=== PATIENT | male | born 1950 | race Caucasian/White ===

== ENCOUNTER 2016-07-20 12:41 | Inpatient (IN) | payer OTHER, MEDICARE ==
[2016-07-20] MEDS ORDERED: NS 500 ML IV ONE (12:55)
--- NOTE | 2016-07-20 12:58 | UCPHY ---
H & P Time Seen by Provider: 07/20/16 12:55 Patient Type: New HPI/ROS: CHIEF COMPLAINT: lightheaded HISTORY OF PRESENT ILLNESS: Patient is a 66-year-old male who presents emergency department after having multiple episodes of lightheadedness. He states the episodes primarily occur when he is changing positions, usually lying down or sitting to standing. Patient describes a bright light and then he feels lightheaded. He feels as though he might faint but he has not. He has had no fall or trauma. He denies headache, dizziness or visual change. He has no focal weakness or numbness. He denies chest pain or shortness of breath. No abdominal pain nausea or vomiting. Patient's daughter states he does not drink enough fluid. No leg pain or swelling. REVIEW OF SYSTEMS: My complete review of systems is negative except as mentioned in the HPI. Past Medical/Surgical History: Includes Hypertension, high cholesterol, recently diagnosis psoriatic rash Physical Exam: Vitals noted GENERAL: Well-appearing, in no acute distress, alert. HEENT: Eyes normal to inspection, normal pharynx, no signs of dehydration. NECK: No thyromegaly, no lymphadenopathy, supple. RESPIRATORY: Clear to auscultation bilaterally, no rales, rhonchi or wheezing. CVS: Regular rate and rhythm, no rubs, murmurs, or gallops. ABDOMEN: Soft, nontender, nondistended, no organomegaly. BACK: Normal to inspection, no CVA tenderness. SKIN: Normal color, no rash, warm, dry. No pallor. EXTREMITIES: No pedal edema, no calf tenderness, no Homans sign or cords, no joint swelling. NEURO/PSYCH: Higher functions: Alert and Oriented x3. Normal speech and cognition. Normal mood and affect. Cranial nerves: Normal as tested. Cerebellar: Normal as tested. Good finger to nose, good [id number], normal gait. Peripheral exam: Normal motor exam. Normal sensation. Normal reflexes. Constitutional: Initial Vital Signs Temperature (C) 36.7 C 07/20/16 13:00 Heart Rate 86 07/20/16 13:00 Respiratory Rate 16 07/20/16 13:00 Blood Pressure 136/121 H 07/20/16 13:00 O2 Sat (%) 96 07/20/16 13:00 O2 Delivery Mode Room Air Allergies/Adverse Reactions: No Known Allergies Allergy (Verified 07/20/16 13:09) Home Medications: Medication Instructions Recorded Aspirin 81mg (*) 07/20/16 Diovan Hct 160-25 mg Tablet 320 07/20/16 Norvasc 07/20/16 Simvastatin 07/20/16 Medical Decision Making - Diagnostics EKG Interpretation: EKG shows normal sinus rhythm, normal rate, normal axis, normal intervals. There are no ST or T-wave abnormalities. EKG is normal as interpreted by me. ED Course/Re-evaluation: I discussed possible etiologies with the patient. I answered all his questions. IV was placed. The patient was given normal saline 500 mL IV for hydration. Laboratory studies, EKG, chest x-ray and head CT were ordered. Head CT: Please refer the dictated report by Dr. Matthew Vásquez. No acute disease noted. Patient [place] [address]. Hematocrit is normal. Platelets are unremarkable. The patient has low sodium 129. Patient has had mild hyponatremia in the past with his previous sodium being 133. UA was added. I discussed the results with the patient and answered all his questions. Patient was recheck. He had no focal neurologic deficits. I discussed the case with Dr. Mijares personally. Reviewed the patient's laboratory studies and x-ray. We agreed on the plan for transfer to [facility] and admission. I discussed this with the patient and answered all his questions. I discussed the case with Dr. Dominique who accepts transfer to the emergency department at the [facility]. Discussed the case with Dr. Loc Noguera from the hospitalist service who accepts the patient. Differential Diagnosis: My differential includes but is not limited to near syncope, syncope, ACS, acute RI, dysrhythmia, PE, electrolyte abnormality, sugar abnormality, dehydration, ischemic CVA, hemorrhagic CVA, dissection, aneurysm - Data Points Laboratory Results: Laboratory Results 07/20/16 13:18 07/20/16 13:18 07/20/16 07/20/16 07/20/16 14:10 13:18 13:18 WBC 21.30 10^3/uL H 10^3/uL (3.80-9.50) RBC 4.28 10^6/uL L 10^6/uL (4.40-6.38) Hgb 15.0 g/dL g/dL (13.7-17.5) Hct 40.6 % % (40.0-51.0) MCV 94.9 fL fL (81.5-99.8) MCH 35.0 pg H pg (27.9-34.1) MCHC 36.9 g/dL H g/dL (32.4-36.7) RDW 12.3 % % (11.5-15.2) Plt Count 205 10^3/uL 10^3/uL (150-400) MPV 8.8 fL fL (8.7-11.7) Neut % (Auto) 86.7 % H % (39.3-74.2) Lymph % (Auto) 6.1 % L % (15.0-45.0) [place] % (Auto) 6.3 % % (4.5-13.0) Eos % (Auto) 0.2 % L % (0.6-7.6) Baso % (Auto) 0.1 % L % (0.3-1.7) Nucleat RBC Rel Count 0.0 % % (0.0-0.2) Absolute Neuts (auto) 18.47 10^3/uL H 10^3/uL (1.70-6.50) Absolute Lymphs (auto) 1.29 10^3/uL 10^3/uL (1.00-3.00) Absolute Monos (auto) 1.34 10^3/uL H 10^3/uL (0.30-0.80) Absolute Eos (auto) 0.04 10^3/uL 10^3/uL (0.03-0.40) Absolute Basos (auto) 0.03 10^3/uL 10^3/uL (0.02-0.10) Absolute Nucleated RBC 0.00 10^3/uL 10^3/uL (0-0.01) Immature Gran % 0.6 % % (0.0-1.1) Immature Gran # 0.13 10^3/uL H 10^3/uL (0.00-0.10) Sodium 129 mEq/L L mEq/L (134-144) Potassium 3.6 mEq/L mEq/L (3.5-5.2) Chloride 93 mEq/L L mEq/L (97-110) Carbon Dioxide 24 mEq/l mEq/l (22-31) Anion Gap 12 mEq/L mEq/L (8-16) BUN 8 mg/dL mg/dL (7-23) Creatinine 0.9 mg/dL mg/dL (0.7-1.3) Estimated GFR > 60 Glucose 95 mg/dL mg/dL (70-100) Calcium 9.5 mg/dL mg/dL (8.5-10.4) Troponin I < 0.012 ng/mL ng/mL (0-0.034) Urine Color YELLOW Urine Appearance CLEAR Urine pH 7.0 (5.0-7.5) Ur Specific [place] <= 1.005 (1.002-1.030) Urine Protein NEGATIVE (NEGATIVE) Urine Ketones TRACE H (NEGATIVE) Urine Blood NEGATIVE (NEGATIVE) Urine Nitrate NEGATIVE (NEGATIVE) Urine Bilirubin NEGATIVE (NEGATIVE) Urine Urobilinogen 0.2 EU EU (0.2-1.0) Ur Leukocyte Esterase NEGATIVE (NEGATIVE) Ur Culture Indicated? NOT INDICATED (NI) Urine Glucose NEGATIVE (NEGATIVE) Medications Given: Discontinued Medications Sodium Chloride (Ns) 500 mls @ 0 mls/hr IV ONCE ONE PRN Reason: As Directed Stop: 07/20/16 12:56 Last Admin: 07/20/16 14:05 Dose: 500 mls Departure - Departure Disposition: [facility] Inpatient Acute Clinical Impression: Near syncope, Lightheaded, Hyponatremia Leukocytosis Qualifiers: Leukocytosis type: other Qualified Code(s): D72.828 - Other elevated white blood cell count Condition: Good Referrals: Taran Mijares, DO [Primary Care Provider] - As per Instructions - PQRS PQRS Measurement: My PQRS negative my PQRS negative my PQRS negative my PQRS negative 134: Depression screening and followup, PRIME MD-PHQ2 (12 years and older) Over the last 2 weeks, how often have you been bothered by any of the following problems? 1. Feeling down, depressed, or hopeless? 2. Little interest or pleasure in doing things? Patient answered no to both 1 and 2 130: Documentation of medications. Reviewed all patient medications, doses, route and frequency. 226: Do you smoke? Yes. The patient was advised to stop smoking..
--- NOTE | 2016-07-20 13:11 | CPEKG ---
Heart Rate: 81 RR Interval: 741 P-R Interval: 200 QRSD Interval: 86 QT Interval: 388 QTC Interval: 451 P [place]: 62 QRS [place]: 42 T Wave [place]: 45 EKG Severity - NORMAL ECG - EKG Impression: SINUS RHYTHM Electronically Signed By: Peter Early 21-Jul-2016 13:26:06
[2016-07-20 13:25] LABS: % IMMATURE GRANULYOCYTES 0.6 % (0.0-1.1); ABSOLUTE IMMATURE GRANULOCYTES 0.13 10^3/uL (0.00-0.10); ADD DIFF? NO; ADD MORPH? NO; ADD SCAN? NO; ATYPICAL LYMPHOCYTE FLAG 0 (0-99); FRAGMENT RBC FLAG 0 (0-99); HEMATOCRIT 40.6 % (40.0-51.0); LEFT SHIFT FLG 0 (0-99); LIPEMIA HEMOLYSIS FLAG 90 (0-99); MEAN CELL HEMOGLOBIN CONCENTR. 36.9 g/dL (32.4-36.7); MEAN CELL VOLUME 94.9 fL (81.5-99.8); MEAN PLATELET VOLUME 8.8 fL (8.7-11.7); PLATELET CLUMPS FLAG 10 (0-99); PLATELET COUNT 205 10^3/uL (150-400); RED BLOOD CELL COUNT 4.28 10^6/uL (4.40-6.38); RED CELL DISTRIBUTION WIDTH 12.3 % (11.5-15.2)
[2016-07-20 13:41] LABS: ANION GAP 12 mEq/L (8-16); CALCIUM 9.5 mg/dL (8.5-10.4); CARBON DIOXIDE 24 mEq/l (22-31); CHLORIDE 93 mEq/L (97-110); CREATININE 0.9 mg/dL (0.7-1.3); GLOMERULAR FILTRATION RATE > 60; GLUCOSE 95 mg/dL (70-100); POTASSIUM 3.6 mEq/L (3.5-5.2); SODIUM 129 mEq/L (134-144)
[2016-07-20 13:54] LABS: TROPONIN I < 0.012 ng/mL (0-0.034)
[2016-07-20 14:25] LABS: COLOR YELLOW; LEUKOCYTE ESTERASE,URINE NEGATIVE (NEGATIVE); NITRITE,URINE NEGATIVE (NEGATIVE)
[2016-07-20] MEDS ORDERED: ACETAMINOPHEN 325 MG TAB PO PRN (17:52)
[2016-07-20] MEDS ORDERED: ONDANSETRON DISINTEGRATING 4 MG TAB PO PRN (17:52)
[2016-07-20] MEDS ORDERED: ONDANSETRON 4 MG/2 ML VIAL IVP PRN (17:52)
[2016-07-20] MEDS ORDERED: NS 1,000 ML IV SCH (18:00)
--- NOTE | 2016-07-20 22:44 | GHP ---
[f rep st] HISTORY AND PHYSICAL DATE OF ADMISSION: 07/20/2016 HISTORY OF PRESENT ILLNESS: The patient is a 66-year-old gentleman with a history of hypertension a nd hyperlipidemia who presented for a presyncopal type episode. He has had a number of these episod es where he feels weak and he sees bright lights. He has no chest pain, no shortness of breath, no palpitations. He does not have heart failure symptoms such as PND, orthopnea, or lower extremity ed ariana. He does not have a cardiac history. He has not lost consciousness. He was down on his hands knees working with his daughter, and he had a significant episode, so he so ught care. He denies recent shortness of breath or cough. He does smoke cigarettes and has done so for approxi mately 50 years. He drinks about 6-8 beers throughout the day. He does not have a history of alcoh ol withdrawal. It is not clear that he has stopped for an extended period of time. His children note that he drinks minimal water, and he only eats dinner. He does not drink much dur ing the day. He does describe orthostatic type symptoms. He has had some diarrhea over the last couple of days. No nausea. REVIEW OF SYSTEMS: Complete 10-point review of systems conducted and negative except as noted in th e HPI. PAST MEDICAL HISTORY: Hypertension and hyperlipidemia. Heavy alcohol use. ALLERGIES: No known drug allergies. HOME MEDICATIONS: Amlodipine, aspirin, hydrochlorothiazide 12.5, simvastatin and valsartan. SOCIAL HISTORY: He worked at [employer] and before that it sounds like for the [employer]. He amandae kaylaly lives in [place]. He smokes cigarettes and alcohol as in the HPI. FAMILY HISTORY: Children at the bedside and helpful. PHYSICAL EXAMINATION: VITAL SIGNS: Blood pressure 128/88, pulse 108, breathing 18 times a minute, 92% on room air. GENERAL: No acute distress. HEENT: Sclerae anicteric. Oropharynx clear. Mucou s membranes are moist. NECK: Supple without lymphadenopathy or JVD. LUNGS: Show rhonchorous pebbles th sounds and fine crackles bilaterally. HEART: S1, S2 without murmurs. ABDOMEN: Soft, nontender , and nondistended. LOWER EXTREMITIES: Without edema. SKIN: He has an erythematous rash on his r ight pope that he feels like is consistent with infection. There is some skin flaking. He is takin g a steroid cream for this that has led to significant improvement. NEUROLOGIC: Nonfocal. LABORATORY DATA: White count 21, with a left shift. Hematocrit 40. Platelets are 205,000. Sodium 129, potassium 3.6, chloride 93, bicarb 24, BUN 8, creatinine 0.9, glucose 95. Troponin less than 0.012. Chest x-ray, interpreted by me, shows an interstitial lung pattern bilaterally. There is no focal infiltrate. There is no cardiomegaly. Urinalysis is negative. EKG interpreted by me shows sinus at 81 with normal axis and intervals. There are no ST or T-wave changes. Noncontrast head CT shows right maxillary and ethmoid sinusitis, cerebrovascular atherosclerosis, and mild microvascula r ischemic gliosis. I discussed the case Dr. Martina Starkey of Urgent Care. ASSESSMENT/PLAN: This 66-year-old gentleman presents with multiple complaints. 1. Presyncope type symptoms. I suspect this is orthostasis. We will check orthostatic vital signs while here. We will place him on telemetry and cycle his troponin's. I do not think he needs an e chocardiogram at this point. 2. Leukocytosis. In the context of abnormal chest x-ray, we will treat for community-acquired pneu monia. He may have an atypical pneumonia. I will also check influenza, given his leukocytosis. We will also send a stool for Clostridium difficile. He does not appear to be at risk for it. 3. Abnormal chest x-ray in a smoker. We will treat for community-acquired pneumonia and do a nonco ntrast chest CT to evaluate for ILD. No evidence of masses. 4. Hyponatremia. This is chronic. He has had previous low sodium. I think this is poor oral inta ke in the setting of thiazide diuretics. Given his low dose of thiazide, I think it should be perma nently discontinued. 5. Prophylaxis. He is moderate risk. I suspect he will just be in the hospital overnight. DISPOSITION: Observation status. /[id number]/MODL
[2016-07-21 05:24] LABS: % IMMATURE GRANULYOCYTES 0.2 % (0.0-1.1); ABSOLUTE IMMATURE GRANULOCYTES 0.01 10^3/uL (0.00-0.10); ADD DIFF? NO; ADD MORPH? NO; ADD SCAN? NO; ATYPICAL LYMPHOCYTE FLAG 10 (0-99); FRAGMENT RBC FLAG 0 (0-99); HEMATOCRIT 38.5 % (40.0-51.0); HEMOGLOBIN 13.8 g/dL (13.7-17.5); LEFT SHIFT FLG 0 (0-99); LIPEMIA HEMOLYSIS FLAG 90 (0-99); MEAN CELL HEMOGLOBIN 35.3 pg (27.9-34.1); MEAN CELL HEMOGLOBIN CONCENTR. 35.8 g/dL (32.4-36.7); MEAN CELL VOLUME 98.5 fL (81.5-99.8); MEAN PLATELET VOLUME 9.2 fL (8.7-11.7); PLATELET CLUMPS FLAG 10 (0-99); PLATELET COUNT 211 10^3/uL (150-400); RED BLOOD CELL COUNT 3.91 10^6/uL (4.40-6.38); RED CELL DISTRIBUTION WIDTH 12.4 % (11.5-15.2)
[2016-07-21 05:54] LABS: ANION GAP 8 mEq/L (8-16); CALCIUM 8.6 mg/dL (8.5-10.4); CARBON DIOXIDE 22 mEq/l (22-31); CHLORIDE 107 mEq/L (97-110); CREATININE 0.8 mg/dL (0.7-1.3); GLOMERULAR FILTRATION RATE > 60; GLUCOSE 84 mg/dL (70-100); SODIUM 137 mEq/L (134-144)
[2016-07-21] MEDS: VALSARTAN 160 MG TAB PO SCH (08:31)
[2016-07-21] MEDS: ATORVASTATIN CALCIUM 10 MG TAB PO SCH (08:31)
[2016-07-21] MEDS: ASPIRIN EC 81 MG TAB PO SCH (08:31)
--- NOTE | 2016-07-21 18:02 | HOSPPROG ---
Hospitalist Progress Note Assessment/Plan: DIAGNOSES: # left-sided facial and head and upper extremity heavy sensation, new symptom today suspicious for possible stroke ; as the symptoms have been present since sometime during last night and I am just finding out about them from him late this afternoon there is no reason to be doing stroke alert at this time # orthostatic dizziness and dehydration, resolved after IV fluids # Hyponatremia due to poor intake and diuretics, resolved after IV fluids # chronic hypertension remains well controlled here without his diuretic and I would agree that given the above he should probably stop diuretics permanently as his symptoms are recurrent episode PLANS: -MRI of brain to evaluate his left-sided neurologic symptoms - can stop IV fluids now -Continue off diuretic and follow blood pressures continuing his other medicines - Liriano views of the orbits are ordered as 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 However he complains to me that feels that he has an imbalance pushing him toward the left side, and that he has a heavy sensation on the left side of his head face and left upper extremity. There is no tingling or numbness there. He has no other focal neurologic symptoms. There is no headache and no cardiac symptoms. He has been able to get up and walk and he has been eating well. 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: sinus rhythm Exam: alert oriented skin warm dry color ok resps not labored lungs clear BSs heart regular abd soft nondistended nontender, bowel sounds present limbs warm, no edema iv site ok Objective: Vital Signs Temp Pulse Resp BP Pulse Ox 36.9 C 80 20 113/67 91 L 07/21/16 15:43 07/21/16 15:43 07/21/16 15:43 07/21/16 15:43 07/21/16 15:43 Laboratory Results 07/21/16 04:39 07/21/16 04:39 07/20/16 07/21/16 07/22/16 06:59 06:59 06:59 Intake Total 900 1300 Output Total 820 Balance 80 1300 ICD10 Worksheet Patient Problems: Problems Problem Status Onset Hyponatremia Acute Leukocytosis Acute Lightheaded Acute Near syncope Acute
--- NOTE | 2016-07-21 18:05 | HOSPPROG ---
Hospitalist Progress Note Assessment/Plan: DIAGNOSES: # left-sided facial and head and upper extremity heavy sensation, -new symptom today suspicious for possible stroke ; as the symptoms have been present since sometime during last night and I am just finding out about them from him late this afternoon there is no reason to be doing stroke alert at this time # orthostatic dizziness and dehydration, resolved after IV fluids # Hyponatremia due to poor intake and diuretics, resolved after IV fluids # chronic hypertension - remains well controlled here without his diuretic and I would agree that given the above he should probably stop diuretics permanently as his symptoms are recurrent episode # 1 cm noncalcified left lung nodule, new finding on CT - this lesion will need further evaluation, is location may indicate PET scanning as a place to start but will review have pulmonology review - I have discussed this lesion and the need for evaluation with the patient PLANS: -MRI of brain to evaluate his left-sided neurologic symptoms - can stop IV fluids now -Continue off diuretic and follow blood pressures continuing his other medicines - Liriano views of the orbits are ordered as 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 However he complains to me that feels that he has an imbalance pushing him toward the left side, and that he has a heavy sensation on the left side of his head face and left upper extremity. There is no tingling or numbness there. He has no other focal neurologic symptoms. There is no headache and no cardiac symptoms. He has been able to get up and walk and he has been eating well. 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 Exam: alert oriented skin warm dry color ok resps not labored lungs clear BSs heart regular abd soft nondistended nontender, bowel sounds present limbs warm, no edema iv site ok CT scan of chest, my review of images: There is a 1 cm noncalcified lung nodule in the middle of the left lung not near major bronchus or the chest wall Objective: Vital Signs Temp Pulse Resp BP Pulse Ox 36.9 C 80 20 113/67 91 L 07/21/16 15:43 07/21/16 15:43 07/21/16 15:43 07/21/16 15:43 07/21/16 15:43 Laboratory Results 07/21/16 04:39 07/21/16 04:39 07/20/16 07/21/16 07/22/16 06:59 06:59 06:59 Intake Total 900 1300 Output Total 820 Balance 80 1300 ICD10 Worksheet Patient Problems: Problems Problem Status Onset Hyponatremia Acute Leukocytosis Acute Lightheaded Acute Near syncope Acute
[2016-07-22] MEDS: VALSARTAN 160 MG TAB PO SCH (08:14)
[2016-07-22] MEDS: ATORVASTATIN CALCIUM 10 MG TAB PO SCH (08:14)
[2016-07-22] MEDS: ASPIRIN EC 81 MG TAB PO SCH (08:14)
[2016-07-22 11:43] VITALS: BP 121/73; PULSE 87; RESP 16; TEMP 98.3; O2SAT 94
[2016-07-22] MEDS ORDERED: PNEUMOC 13-VAL CONJ-DIP CRM/PF 0.5 ML SYR IM ONE (14:52)
--- NOTE | 2016-07-22 20:05 | GDS ---
[f rep st] DISCHARGE SUMMARY DISCHARGE DIAGNOSES: 1. Hyponatremia, resolved. 2. Volume depletion, resolved. 3. Hypertension, controlled. 4. 1 cm left lower lung nodule. CONSULTANTS: None. HISTORY: For details please see dictated history and physical dated July 20, 2015. In brief, t he patient is a 66-year-old male, with history of hypertension, who [facility] with presyncopal symptoms. He was found to be orthostatic and received IV fluids. He also de leon d an abnormal chest x-ray, and was treated for pneumonia with Levaquin, which he will complete a 1-w apache course. He had an abnormal chest x-ray with a leukocytosis of 21,000. He was treated for presumed community -acquired pneumonia. His white count normalized the following day. In addition, he presented with a low sodium of 129. This was thought to be hypovolemic hyponatremia , and corrected to normal the following day, after receiving normal saline. He was negative for Flor stridium difficile. He was negative for influenza. His troponins were cycled and were also negativ e. Head CT was performed on admission that showed right maxillary and ethmoid sinusitis, which would al so be covered by Levaquin. Cerebrovascular atherosclerosis was noted, as well as mild microvascular ischemic gliosis. He then underwent brain MRI for further evaluation of some neurologic symptoms. This showed moderat e nonspecific white matter abnormality, but no evidence of acute cerebral ischemia. Again, chronic right maxillary sinusitis was noted. Other nonspecific white matter hyperintensities are frequently seen at this age. Chest CT was also performed for further evaluation of his abnormal chest x-ray. This revealed a 1 c m noncalcified, well-circumscribed left lower lobe pulmonary nodule, which is a new finding. Nonspe cific ground-glass opacities were also seen, though this may have been inflammatory versus subsegmen coy atelectasis. On the day of discharge, the patient felt that his symptoms had completely resolved as above. His l abs all normalized. I discussed with him the findings on his chest CT, including the left lower lobe pulmonary nodule, f or which he will need close outpatient followup with Pulmonology. I strongly urged the patient to c onsider cessation of tobacco use, though he appears pre-contemplative. DISPOSITION: Patient is discharged home in stable condition. DISCHARGE MEDICATIONS: Please see [employer] for complete updated outpatient medication list. New medications on discharge include levofloxacin 750 mg p.o. daily for 6 more days to complete 1 we ek of therapy. Discontinued medications include hydrochlorothiazide due to his hyponatremia. He will continue his aspirin, valsartan, amlodipine, and simvastatin as previously ordered. FOLLOWUP: Patient will follow up with his primary care physician, Dr. Taran Mijares, in 1-2 weeks. He is also instructed to follow up with Dr. Lloyd Ferguson, customer orders clerk, for further evaluation of his left lower lobe pulmonary nodule. /[id number]/MODL
== END 2016-07-22 16:00 | disposition home or self-care (01) | DRG 640 ==
LOC: CED 12:41 → CEDHOLD 15:04 → F2W 16:44 → OBSVTOIN 07-21 20:10
PROVIDERS: ADMIT Internal Medicine; ATTEND Internal Medicine
DX: E87.1 Hypo-osmolality and hyponatremia (principal); J18.9 Pneumonia, unspecified organism; R91.1 Solitary pulmonary nodule; I10 Essential (primary) hypertension; E78.5 Hyperlipidemia, unspecified; F17.210 Nicotine dependence, cigarettes, uncomplicated
CPT/HCPCS: 70450-PO; 71020-PO; 80048-PO; 81003-PO; 84484-PO; 85025-PO; 96360-PO; G0009; G0378; G0463-PO

== ENCOUNTER → 2016-10-03 | Outpatient (CLI) | payer OTHER, MEDICARE | LOC: CIMAGING 08:12 | PROVIDERS: ATTEND Internal Medicine Pulmonary Disease | DX: R91.1 Solitary pulmonary nodule (principal); J43.2 Centrilobular emphysema | CPT/HCPCS: 71250-PO ==

== ENCOUNTER → 2017-10-16 | Outpatient (CLI) | payer OTHER, MEDICARE | LOC: CIMAGING 09:14 | PROVIDERS: ATTEND Internal Medicine Pulmonary Disease | DX: R91.1 Solitary pulmonary nodule (principal); I25.10 Atherosclerotic heart disease of native coronary artery without angina pectoris | CPT/HCPCS: 71250-PO ==